=== PATIENT | male | born 1935 ===

== ENCOUNTER 2017-04-10 17:47 | Emergency (ER) | payer MEDICARE, BC ==
[2017-04-10] MEDS ORDERED: NORMAL SALINE 1,000 ML IV ONE (18:47)
[2017-04-10] MEDS ORDERED: ONDANSETRON HCL/PF 2 MG/ML VIAL IV ONE (18:47)
[2017-04-10 19:03] LABS: Hematocrit 38.2 % (42.0-52.0); Hemoglobin 12.5 gm/dL (13.5-18.0); Mean Corpuscular Hemoglobin 30.1 pg (27-31); Mean Corpuscular Hgb Conc 32.7 g/dl (32-36); Mean Platelet Volume 9.9 fl (6.0-9.5); Neutrophil # 2.7 K/mm3 (1.3-6.0); Neutrophil % 73.2 % (42-75.0); Platelet Count 126 K/mm3 (150-450); Red Blood Count 4.15 M/mm3 (4.7-6.0); Red Cell Distribution Width 15.1 % (11.5-14.0); White Blood Count 3.7 K/mm3 (4.0-10.5)
[2017-04-10] MEDS ORDERED: ONDANSETRON HCL/PF 2 MG/ML VIAL ONE (19:08)
[2017-04-10 19:22] LABS: Albumin * 3.6 gm/dl (3.4-5.0); BUN/Creatinine Ratio 17.8 (9.0-21.6); Bilirubin, Total 0.9 mg/dL (0.0-1.1); Ca. Corrected For Albumin 9.3 mg/dL (8.4-10.2); Calcium * 9.3 mg/dL (7.9-10.9); Potassium 4.1 mmol/L (3.4-4.6); Total Protein 6.8 gm/dL (6.2-8.2)
[2017-04-10 19:26] LABS: Anion Gap 14.1 mmol/L (6.8-13.8)
[2017-04-10 19:54] LABS: Urine Bilirubin Negative (NEGATIVE); Urine Ketone Negative (NEGATIVE); Urine Nitrite Negative (NEGATIVE); Urine Protein Negative (NEGATIVE); Urine Urobilinogen Normal (NORMAL); Urine pH 5.5 pH (5.0-7.0)
[2017-04-10 19:55] LABS: Urine Appearance Clear; Urine Bacteria TRACE; Urine Blood 5 /ul (NEGATIVE); Urine Color Yellow; Urine RBC None Seen /hpf (0-5); Urine WBC None Seen /hpf (0-5)
--- NOTE | 2017-04-10 20:03 | ERNOTE ---
Medical Problem HPI - Narrative Date of Service: 04/10/17 - General Chief Complaint: Nausea/Vomiting Time Seen by Provider: 04/10/17 18:40 Source: patient, family, RN notes reviewed Exam Limitations: hard of hearing - Immun/Allergies/Home Medications Immunizations: IMMUNIZATION HX Immunizations Up to Date No: unknown History of Influenza Vaccine No Hx Pneumococcal Vaccination No Allergies/Adverse Reactions: Allergies No Known Allergies Allergy (Verified 04/10/17 18:20) Home Medications: HOME MEDICATIONS Furosemide [Lasix] 80 mg PO BID 09/09/13 [Last Taken Unknown] Potassium Chloride [Klor-Con 10] 10 meq PO BID 09/09/13 [Last Taken Unknown] Pravastatin Sodium [Pravachol] 40 mg PO DAILY 09/09/13 [Last Taken Unknown] Allopurinol [Zyloprim] 300 mg PO DAILY 04/10/17 [Last Taken Unknown] Azithromycin [Zithromax] 250 mg PO DAILY #4 tablet 04/10/17 [Last Taken Unknown] Cyanocobalamin (Vitamin B-12) [B-12] 1,000 mcg PO DAILY 04/10/17 [Last Taken Unknown] Omeprazole 40 mg PO DAILY 04/10/17 [Last Taken Unknown] Ondansetron [Zofran Odt] 8 mg PO Q8H PRN #12 tab 04/10/17 [Last Taken Unknown] Ranitidine HCl [Zantac] 300 mg PO HS 04/10/17 [Last Taken Unknown] Spironolactone [Aldactone] 25 mg PO DAILY 04/10/17 [Last Taken Unknown] - History of Present History Narrative: 82 y/o male brought to the ED by his for dizziness that began 2 days ago and nausea/vomiting that began around 1700 tonight. He has taken Meclizine with some improvement in the dizziness. He has also had a cough that began about 5 days ago. His lasix dose was recently decreased by his PCP () and his reports that he has had more swelling in his legs since. Review of Systems - Review of Systems Constitutional: Present: fatigue, malaise. Absent: recent illness, chills EYE: Present: no symptoms reported ENT: Present: sore throat. Absent: ear pain, nose congestion, nasal drainage Respiratory: Present: cough. Absent: shortness of breath, wheezing Cardiology: Present: edema. Absent: chest pain, palpitations Gastrointestinal/Abdominal: Present: nausea, vomiting. Absent: diarrhea, constipation, abdominal pain Genitourinary: Absent: hematuria, decreased urinary output Musculoskeletal: Absent: muscle pain, joint pain Skin: Absent: rash, lesions Neurological: Present: dizziness/light-headedness. Absent: headache, weakness, numbness, tingling Endocrine: Present: no symptoms reported Hematologic/Lymphatic: Present: no symptoms reported Psych: Present: no symptoms reported - Patient's Past Medical History Patient History - Medical: Depression, GERD Patient History - Cardiac/Respiratory: CHF, Hyperlipidemia Patient History - Cancer: Prostate Patient History - Surgical Procedures: No surgical history Patient History - Other: None - Social History Living Situations: spouse Abuse History: No History of abuse Psych History: Hx of Depression Smoking Status: Never smoker Have you smoked in the past 12 months: No Do you dip or chew tobacco: No Alcohol Use: none Drug Use: none - Immunizations Immunizations Up to Date: No - unknown Hx Pneumococcal Vaccination: No History of Influenza Vaccine: No Physical Exam - Physical Exam General Appearance: Present: wd/wn, alert, mild distress Eye Exam: Normal inspection: bilateral Ears, Nose, Throat: Present: hearing decreased. Absent: nasal congestion, sinus pain/drainage, pharyngeal erythema Neck: Present: normal inspection, nontender, supple Respiratory: Present: no respiratory distress, no accessory muscle use, crackles - bibasilar Cardiovascular/Chest: Present: regular rate, rhythm, no murmur, normal peripheral pulses Gastrointestinal/Abdominal: Present: nontender, nondistended, soft Extremity Exam: Present: non-tender, normal range of motion, pedal edema Neurological Exam: Present: alert, oriented, normal mood/affect, no motor/ sensory deficits Skin Exam: Present: warm/dry, pallor ED Progress - Results and Orders Patient's Lab Results:: I have reviewed the patient's lab results. - Vital Signs Patient's Vital Signs:: I have reviewed the patient's vital signs. Vital Signs: Vital Signs 04/10/17 18:20 Temperature 36.2 C L Pulse Rate 82 Respiratory 14 Rate Blood Pressure 141/67 O2 Sat by Pulse 98 Oximetry - X-Ray X-Ray #1 X-Ray: chest Interpretation: Reviewed by me X-ray Comments: TECHNIQUE: 3 views of the right ankle. COMPARISONS: No previous radiographs of the right ankle available. Radiographs of the right foot from 06/23/2016 available. Ankle Minimum 3 Views RT * FINDINGS/IMPRESSION: 1. On the oblique image there is a questionable oblique lucency of the distal fibular metadiaphysis centered approximately 3.5 cm above the level of the tibiotalar joint, limited to the medial cortex of the distal fibula, with no definable lucency seen on other projections. This is most likely artifact but given the patient's clinical history of lateral ankle pain, after a fall, clinical correlation is advised for focal point tenderness at this location. Consider short-term radiographic follow-up in 7-10 days. 2. Joint spaces are in gross normal alignment without subluxation or dislocation. On the AP and oblique image there is a slight lateral tilt of the talus. Consider possible ligamentous injury. 3. Soft tissue swelling noted at the anterolateral aspects of the left ankle. Electronically signed by Glo Long M.D.. Glo Long MD X-Ray #2 X-Ray: abdomen Interpretation: Reviewed by me X-ray Comments: No acute intra-abdominal pathology noted - Progress/Reassessment Chief Complaint: Nausea/Vomiting Progress:: Improved Plan - Plan Plan: Rocephin IV and Zithromax po initiated for pneumonia. Rx given for Zofran. Will try outpatient treatment, discussed returning for worsening symptoms with patient and . They are in agreement with plan. Patient already has appointment for f/u with his PCP next week. Departure Clinical Impression: Pneumonia Qualifiers: Pneumonia type: due to unspecified organism Laterality: unspecified laterality Lung location: unspecified part of lung Qualified Code(s): J18.9 - Pneumonia, unspecified organism Nausea and vomiting Qualifiers: Vomiting type: unspecified Vomiting Intractability: non-intractable Qualified Code(s): R11.2 - Nausea with vomiting, unspecified - Departure Disposition: Home Follow Up Needed Condition: Stable Instructions: Nausea and Vomiting, Adult, [id number], Community-Acquired Pneumonia, Adult, [id number] Additional Instructions: Continue your routine medications Return to ER if symptoms worsen, otherwise follow up with Dr. Rainey in 4 or 5 days Referrals: Shemar Rainey MD [Primary Care Provider] - Prescriptions: Azithromycin [Zithromax] 250 mg PO DAILY #4 tablet Ondansetron [Zofran Odt] 8 mg PO Q8H PRN #12 tab PRN Reason: Nausea
[2017-04-10 20:04] LABS: Urine Hyaline Cast 0-5 /LPF
[2017-04-10] MEDS ORDERED: AZITHROMYCIN 250 MG TABLET PO ONE (20:30)
[2017-04-10] MEDS ORDERED: AZITHROMYCIN 250 MG TABLET ONE (20:38)
[2017-04-10] MEDS ORDERED: ONDANSETRON 4 MG TAB.RAPDIS PO ONE ×2 (20:50→21:44)
[2017-04-10] MEDS ORDERED: ONDANSETRON 4 MG TAB.RAPDIS ONE ×2 (21:21→21:58)
[2017-04-10 21:24] VITALS: BP 105/39
== END 2017-04-10 22:00 | disposition home or self-care (01) ==
LOC: ER 17:47
DX: J18.9 Pneumonia, unspecified organism (principal); R11.2 Nausea with vomiting, unspecified; K21.9 Gastro-esophageal reflux disease without esophagitis; I50.9 Heart failure, unspecified; E78.5 Hyperlipidemia, unspecified; F32.89 Other specified depressive episodes; Z85.46 Personal history of malignant neoplasm of prostate
CPT/HCPCS: 36415; 71020; 74020; 80053; 81001; 83605; 83880; 85025; 87040; 96365; 96375; 99284; J2405